=== PATIENT | male | born 1960 | race African-American/Black ===

== ENCOUNTER → 2016-08-10 | Day surgery (SDC) | payer OTHER ==
[~2016-08-10] MED LIST: ALPH300C PO; AMLO5TAB2 PO; HYDROmorphone 2 MG/ML VIAL IV PRN; INSU100V5 IJ; IV RINGERS,LACTATED 1000ML 1,000 ML IV SCH; LIDOCAINE 1% 1 ML SYRINGE. ID PRN; LIDOCAINE 2% PF Vial for OR 5 ML VIAL. ONE; LISI1TAB3 PO; MIDAZOLAM HCL/PF 2 MG/2 ML VIAL. IV PRN; MIRT45TA PO; MORPHINE SULFATE 2 MG/ML DISP.SYRIN. IV PRN; NAPR500T PO; NPH,100V SQ; ONDANSETRON PF 4 MG/2 ML VIAL. IV PRN; OXCA150T3 PO; PANT40TA3 PO; PROCHLORPERAZINE 10 MG/2 ML VIAL. IV PRN; PROPOFOL 40 ML IV ONE; fentaNYL PF VIAL 100 MCG/2 ML VIAL IV PRN
--- NOTE | 2016-08-10 09:49 | PDOC2 ---
GI CONSULT Reason For Consult: EGD HPI: HPI: 55 y/o male w/ dysphagia, mostly w/ solid foods. Additional h/o GERD on PPI. PMH: PMH: GERD, Flaherty's, dysphagia, HTN, DM, hernia repair FH: Family History: No pertinent hx Social History: Smoke: No ALCOHOL: none Drugs: None ROS: GEN: Denies fevers, chills, sweats HEENT: Denies blurred vision, sore throat CV: Denies chest pain RESP: Denies shortness of air, cough GI: Per HPI : Denies hematuria, dysuria ENDO: Denies weight changes NEURO: Denies confusion, dizziness MSK: Denies weakness, joint pain/swelling SKIN: Denies jaundice, pruritus Vitals: Vitals: Vital Signs Date Time Temp Pulse Resp B/P (MAP) Pulse Ox O2 Delivery O2 Flow Rate FiO2 08/10/16 08:47 98.1 78 20 95 98.1 Labs: Labs: Laboratory Tests Test 08/10/16 08:53 Glucose (Fingerstick) 179 mg/dL (70-99) Allergies: Coded Allergies: No Known Drug Allergies (Unverified , 08/10/16) Medications: Current Medications Medications (Trade) Dose Ordered Sig/Neo Route PRN Reason Start Time Stop Time Status Last Admin Dose Admin Ringer's Solution 1,000 ml @ 30 mls/hr Q24H IV 08/10/16 07:00 08/10/16 18:59 08/10/16 08:51 PE: GEN: NAD HEENT: Atraumatic, PERRL LUNGS: CTAB HEART: RRR ABD: NABS, S/ND/NT EXTREMITY: No edema SKIN: No rashes, no jaundice NEURO/PSYCH: A & O 3 A/P: A/P: Dysphagia GERD -- Proceed w/ EGD w/ possible esophageal dilation and/or biopsies. ZAHRAA LECHUGA Aug 10, 2016 09:49
[2016-08-10 11:12] VITALS: BP 140/88
--- NOTE | 2016-08-13 14:30 | PATHOLOGY ---
PATHOLOGY REPORT * * * * * * * * FINAL DIAGNOSIS: A. 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 B. 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 (JPM:ngoc; 08/13/2016) COMMENT: A. 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 There is no dysplasia or evidence of malignancy. B. 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 There is no squamous esophageal mucosa. There is no evidence of dysplasia or malignancy. (JPM:ngoc; 08/13/2016) REPORT ELECTRONICALLY SIGNED BY: Wade Frey M.D. DATE/TIME: 08/13/2016 14:30 * * * * * * * * GROSS PATHOLOGY: A. Received in formalin labeled "Junior Martínez, mid esophageal biopsy," are multiple segments of finney soft tissue measuring from 0.1 up to 0.3 cm in maximum dimension. The specimen is submitted entirely in cassette A1. B. Received in formalin labeled "distal esophageal biopsy," are multiple segments of finney soft tissue measuring from 0.1 up to 0.3 cm in maximum dimension. The specimen is submitted entirely in cassette B1. (JPM; 08/10/16) INITIAL CPT CODE(S): A; 40174 B; 64687 Professional services performed by [facility] at [facility] [address] [place] [address] Technical services performed by [facility] at [address] [place] [address], [address], [place] [address]. [facility]: SPECIMEN(S) RECEIVED: A.Mid esophagus biopsy B.Distal esophagus biopsy CLINICAL HISTORY: Dysphagia PATIENT: JUNIOR MARTÍNEZ R /AGE: 7 1960 (Age: 55) PATIENT #: [id number] ALT CASE #: SPECIMEN COLLECTION DATE: 08/10/2016 SPECIMEN RECEIVED DATE: 08/10/2016 [facility] - [address] [place] [address] - PHONE: [phone] * * * END OF REPORT * * *
== END | disposition home or self-care (01) ==
LOC: ENDOS 08:27 → EEVIPCON 10:00
PROVIDERS: ATTEND Internal Medicine Gastroenterology
DX: K22.70 Barrett's esophagus without dysplasia (principal); I10 Essential (primary) hypertension; E11.9 Type 2 diabetes mellitus without complications; Z86.39 Personal history of other endocrine, nutritional and metabolic disease
CPT/HCPCS: 43239; 43249; 82962; 88305; J2704

== ENCOUNTER → 2016-10-11 | Outpatient (CLI) | payer OTHER ==
[2016-08-10 11:12] VITALS: BP 140/88
[~2016-10-11] MED LIST changes: -HYDROmorphone 2 MG/ML VIAL IV PRN; -IV RINGERS,LACTATED 1000ML 1,000 ML IV SCH; -LIDOCAINE 1% 1 ML SYRINGE. ID PRN; -LIDOCAINE 2% PF Vial for OR 5 ML VIAL. ONE; -MIDAZOLAM HCL/PF 2 MG/2 ML VIAL. IV PRN; -MORPHINE SULFATE 2 MG/ML DISP.SYRIN. IV PRN; -ONDANSETRON PF 4 MG/2 ML VIAL. IV PRN; -PROCHLORPERAZINE 10 MG/2 ML VIAL. IV PRN; -PROPOFOL 40 ML IV ONE; -fentaNYL PF VIAL 100 MCG/2 ML VIAL IV PRN
--- NOTE | 2016-10-11 10:25 | RAD ---
Exam performed: 2 views right knee. History: Chronic right knee pain for 3 to 4 years, no injury. Disability determination. Date of service: 10/11/16. Comparison: None available AP and lateral view right knee findings: Normal alignment of the medial and lateral tibiofemoral joint is preserved. There is mild narrowing of the patellofemoral joint with minimal osteophytic spurring emanating from the articular surface of patella. There is no acute fracture or dislocation. No soft tissue swelling or joint effusion seen. Impression: Early degenerative changes involving the patellofemoral joint. No acute abnormality seen.
== END | disposition home or self-care (01) ==
LOC: RAD 09:16
PROVIDERS: ATTEND Surgery
DX: M17.11 Unilateral primary osteoarthritis, right knee (principal)
CPT/HCPCS: 73560

== ENCOUNTER 2017-07-24 10:11 | Emergency (ER) | payer OTHER | END 2017-07-24 11:40 | disposition home or self-care (01) | LOC: ER 10:11 | DX: L03.011 Cellulitis of right finger (principal) | CPT/HCPCS: 99283 ==

== ENCOUNTER 2017-10-25 17:51 | Emergency (ER) | payer SELFPAY ==
[~2017-10-25] VITALS: Ht 182.9 cm; Wt 86.2 kg
[~2017-10-25 17:51] MED LIST changes: -AMLO5TAB2 PO; +AMLO5TAB7 PO; +HYDR-971 PO; +NAPR-683 PO; -NAPR500T PO; +SULF1TAB24 PO
[2017-10-25 19:51] VITALS: BP 143/81
[2017-10-25] MEDS ORDERED: LIDOCAINE/EPI/TETRACAINE TOPICAL GEL 3 ML. TP ONE ×2 (20:00)
[2017-10-25] MEDS ORDERED: CEPH-264 PO (20:16)
--- NOTE | 2017-10-25 20:17 | PHYS DOC ---
Past Medical History Past Medical History: Diabetes-Type II, Hypertension Past Surgical History: No Surgical History Additional Past Surgical Histo: RIGHT FINGER, HERNIA Alcohol Use: Occasionally Drug Use: None Adult General Chief Complaint Chief Complaint: FINGER INJURY HPI HPI Patient is a 57 year old male who presents with right ring finger pain, swelling, redness 2 weeks. Also complains of throat pain 3 days. Patient denies fever. Review of Systems Review of Systems Constitutional: Denies fever or chills [] Eyes: Denies change in visual acuity, redness, or eye pain [] HENT: Denies nasal congestion or sore throat [] Respiratory: Denies cough or shortness of breath [] Cardiovascular: No additional information not addressed in HPI [] GI: Denies abdominal pain, nausea, vomiting, bloody stools or diarrhea [] : Denies dysuria or hematuria [] Musculoskeletal: Denies back pain or joint pain [] Integument: Denies rash or Right tip of ring finger abscess. Neurologic: Denies headache, focal weakness or sensory changes [] Endocrine: Denies polyuria or polydipsia [] All other systems were reviewed and found to be within normal limits, except as documented in this note. Current Medications Current Medications Current Medications Medications (Trade) Dose Ordered Sig/Neo Start Time Stop Time Status Last Admin Dose Admin Acetaminophen/ Hydrocodone Bitart (Lortab 5/325) 1 tab 1X ONCE 10/25/17 21:30 10/25/17 21:30 DC 10/25/17 21:13 1 TAB Lidocaine/ Epinephrine (Let Topical) 3 ml 1X ONCE 10/25/17 20:00 10/25/17 20:01 DC 10/25/17 20:00 3 ML Allergies Allergies Allergies Coded Allergies Type Severity Reaction Last Updated Verified No Known Drug Allergies 08/10/16 No Physical Exam Physical Exam Constitutional: Well developed, well nourished, no acute distress, non-toxic appearance. [] HENT: Normocephalic, atraumatic, bilateral external ears normal, oropharynx moist, no oral exudates, nose normal. [] Eyes: PERRLA, EOMI, conjunctiva normal, no discharge. [] Neck: Normal range of motion, no tenderness, supple, no stridor. [] Cardiovascular:Heart rate regular rhythm, no murmur [] Lungs & Thorax: Bilateral breath sounds clear to auscultation [] Abdomen: Bowel sounds normal, soft, no tenderness, no masses, no pulsatile masses. [] Skin: Right tip ring finger with redness, swelling, and a skin next to the nail look to be filled with purulent fluid. Warm, dry, no erythema, no rash. [] Back: No tenderness, no CVA tenderness. [] Extremities: No tenderness, no cyanosis, no clubbing, ROM intact, no edema. [] Neurologic: Alert and oriented X 3, normal motor function, normal sensory function, no focal deficits noted. [] Psychologic: Affect normal, judgement normal, mood normal. [] Current Patient Data Vital Signs Vital Signs Date Time Temp Pulse Resp B/P (MAP) Pulse Ox O2 Delivery O2 Flow Rate FiO2 10/25/17 21:13 18 100 Room Air 10/25/17 19:51 98.7 84 143/81 (101) 98.7 Lab Values Laboratory Tests Test 10/25/17 20:21 Group A Streptococcus Rapid Negative (NEGATIVE) EKG EKG [] Radiology/Procedures Radiology/Procedures Right hand Impressions: No acute findings Course & Med Decision Making Course & Med Decision Making Patient is a 57 year old male who presents with right ring finger pain, swelling, redness 2 weeks. Also complains of throat pain 3 days. Patient denies fever. Upon examination of patient's right ring finger swollen and red but not draining. There is an area outer side of the nail that there is purulent filled. We will apply let to numb it and I will puncture the area to drain pus. Patient will be put on Keflex antibiotic for Paronychia. Patients throat is red but without exudates. Patient denies any head congestion or chest congestion cough. Patient has no sinus tenderness. Patient has no palpable lymph nodes. Patient denies any nausea, fever, diarrhea, vomiting. Patient's lungs are clear to auscultation and heart rate is regular. Alert and oriented. Patients strep is negative. Right hand x ray shows no signs of osteomyelitis and was read by Dr Brown. Large amount of purulent fluid is drained from wound. Patient tolerated well. Patietn to follow up in 48 hours. Abscess Incision and Drainage with irrigation by me: Location: Right 4th finger Anesthesia: LETS Technique: Irrigated. Disrupted loculations w/ instrumentation Packing: None Complications: Neurovascularly intact post procedure 48 hour wound check. Scar minimization instructions given. ED Ultrasound: Abscess localized by me using concurrent ultrasound guidance and assessment of the anatomy. Real time image archived in the medical record confirms anatomy. [ Dragon Disclaimer Dragon Disclaimer This electronic medical record was generated, in whole or in part, using a voice recognition dictation system. Departure Departure Impression: Primary Impression: Paronychia of finger Disposition: HOME, SELF-CARE Condition: STABLE Referrals: UNKNOWN PCP NAME (PCP) Patient Instructions: Paronychia, [id number] Additional Instructions: Follow up with wound check in 48 hours. Soak in warm soapy water. Keep clean and dry. Take medications as prescribed. Scripts Ibuprofen (IBUPROFEN) 600 Mg Tablet 600 MG PO PRN Q6HRS PRN for INFLAMMATION, #10 TAB Prov: LIZETTE CORLEY APR10/25/17 Hydrocodone/Apap 5-325 (NORCO 5-325 TABLET) 1 Each Tablet 1 TAB PO PRN Q6HRS PRN for PAIN, #4 TAB 0 Refills Prov: LIZETTE CORLEY APR10/25/17 Cephalexin (KEFLEX) 500 Mg Capsule 500 MG PO QID for 7 Days, #28 CAP Prov: LIZETTE CORLEY INSTRUCTIONAL ASSISTANT 10/25/17 Attending Signature Attending Signature I have reviewed the PA/WAFER FABRICATION TECHNICIAN's note and plan of care. I was available for consultation as needed during the patient's visit in the emergency department. I agree with the clinical impression, plan, and disposition. Problem Qualifiers Primary Impression: Paronychia of finger Laterality: right Qualified Codes: L03.011 - Cellulitis of right finger LIZETTE CORLEY APRN Oct 25, 2017 20:17 LARRY BROWN DO Oct 27, 2017 04:20
[2017-10-25] MEDS ORDERED: IBUP-1007 PO (20:57)
[2017-10-25] MEDS ORDERED: HYDR-971 PO (20:57)
[2017-10-25] MEDS ORDERED: HYDROcodone/APAP 5/325MG 1 TAB TABLET PO ONE (21:30)
--- NOTE | 2017-10-26 08:33 | RAD ---
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 There is a partially radiopaque bandage related to the distal aspect of the ring finger. No underlying fracture or destructive bony lesion is seen. There is mild spurring at scattered interphalangeal joints. IMPRESSION: No acute bony abnormality is detected. Electronically signed by: Bola Tyson MD (10/26/2017 8:29 AM) [facility]
== END 2017-10-25 21:19 | disposition home or self-care (01) ==
LOC: ER 17:51
DX: L03.011 Cellulitis of right finger (principal); E11.9 Type 2 diabetes mellitus without complications; I10 Essential (primary) hypertension; R07.0 Pain in throat
CPT/HCPCS: 10060; 73130; 87070; 87880; 99285-25

== ENCOUNTER 2017-10-28 00:48 | Emergency (ER) | payer SELFPAY ==
[~2017-10-28 00:48] MED LIST changes: +CEPH-264 PO; +IBUP-1007 PO
[2017-10-28] MEDS ORDERED: CEPH-264 PO (04:14)
[2017-10-28] MEDS ORDERED: SULF1TAB24 PO (04:14)
[2017-10-28] MEDS ORDERED: FAMO-63 PO (04:14)
== END 2017-10-28 01:58 | disposition left against medical advice (07) ==
LOC: ER 00:48
DX: M79.644 Pain in right finger(s) (principal); Z53.21 Procedure and treatment not carried out due to patient leaving prior to being seen by health care provider

== ENCOUNTER 2017-10-28 02:43 | Emergency (ER) | payer SELFPAY ==
[~2017-10-28] VITALS: Ht 182.9 cm; Wt 88.5 kg
[2017-10-28 02:55] VITALS: BP 122/76
[2017-10-28] MEDS ORDERED: CEPHALEXIN 250 MG CAPSULE. PO ONE (03:30)
[2017-10-28] MEDS ORDERED: SMZ/TMP 800/160MG TABLET. PO ONE (03:30)
[2017-10-28] MEDS ORDERED: NEOMY/BACITR/POLYMYXIN OINT PACKET. TP ONE (03:30)
[2017-10-28] MEDS ORDERED: LIDOCAINE 2%/EPI 1:100,000 20 ML VIAL. IJ ONE (03:30)
[2017-10-28] MEDS ORDERED: SULF1TAB24 PO (04:14)
[2017-10-28] MEDS ORDERED: FAMO-63 PO (04:14)
[2017-10-28] MEDS ORDERED: CEPH-264 PO (04:14)
--- NOTE | 2017-10-28 04:14 | PHYS DOC ---
Past Medical History Past Medical History: Diabetes-Type II, Hypertension Past Surgical History: No Surgical History Additional Past Surgical Histo: RIGHT FINGER, HERNIA Alcohol Use: Occasionally Drug Use: None Adult General Chief Complaint Chief Complaint: FINGER INJURY HPI HPI Patient is a 57 year old [f__sex] who presents with [] Review of Systems Review of Systems Constitutional: Denies fever or chills [] Eyes: Denies change in visual acuity, redness, or eye pain [] HENT: Denies nasal congestion or sore throat [] Respiratory: Denies cough or shortness of breath [] Cardiovascular: No additional information not addressed in HPI [] GI: Denies abdominal pain, nausea, vomiting, bloody stools or diarrhea [] : Denies dysuria or hematuria [] Musculoskeletal: Denies back pain or joint pain [] Integument: Denies rash or skin lesions [] Neurologic: Denies headache, focal weakness or sensory changes [] Endocrine: Denies polyuria or polydipsia [] All other systems were reviewed and found to be within normal limits, except as documented in this note. Current Medications Current Medications Current Medications Medications (Trade) Dose Ordered Sig/Neo Start Time Stop Time Status Last Admin Dose Admin Cephalexin HCl (Keflex) 500 mg 1X ONCE 10/28/17 03:30 10/28/17 03:31 DC 10/28/17 03:39 500 MG Lidocaine/ Epinephrine (LIDOCAINE 2%-EPI 1:100,000 multi-dose) 20 ml 1X ONCE 10/28/17 03:30 10/28/17 03:31 DC 10/28/17 03:39 20 ML Neomycin/ Polymyxin/ Bacitracin (Triple Antibiotic Ointment) 1 pkt 1X ONCE 10/28/17 03:30 10/28/17 03:31 DC 10/28/17 03:40 1 PKT Trimethoprim/ Sulfamethoxazole (Bactrim Ds) 2 tab 1X ONCE 10/28/17 03:30 10/28/17 03:31 DC 10/28/17 03:39 2 TAB Allergies Allergies Allergies Coded Allergies Type Severity Reaction Last Updated Verified No Known Drug Allergies 08/10/16 No Physical Exam Physical Exam Constitutional: Well developed, well nourished, no acute distress, non-toxic appearance. [] HENT: Normocephalic, atraumatic, bilateral external ears normal, oropharynx moist, no oral exudates, nose normal. [] Eyes: PERRLA, EOMI, conjunctiva normal, no discharge. [] Neck: Normal range of motion, no tenderness, supple, no stridor. [] Cardiovascular:Heart rate regular rhythm, no murmur [] Lungs & Thorax: Bilateral breath sounds clear to auscultation [] Abdomen: Bowel sounds normal, soft, no tenderness, no masses, no pulsatile masses. [] Skin: Warm, dry, no erythema, no rash. [] Back: No tenderness, no CVA tenderness. [] Extremities: No tenderness, no cyanosis, no clubbing, ROM intact, no edema. [] Neurologic: Alert and oriented X 3, normal motor function, normal sensory function, no focal deficits noted. [] Psychologic: Affect normal, judgement normal, mood normal. [] Current Patient Data Vital Signs Vital Signs Date Time Temp Pulse Resp B/P (MAP) Pulse Ox O2 Delivery O2 Flow Rate FiO2 10/28/17 02:55 99.1 98 20 122/76 (91) 98 Room Air 99.1 EKG EKG [] Radiology/Procedures Radiology/Procedures [] Course & Med Decision Making Course & Med Decision Making Pertinent Labs and Imaging studies reviewed. (See chart for details) [] Dragon Disclaimer Dragon Disclaimer This electronic medical record was generated, in whole or in part, using a voice recognition dictation system. Departure Departure Impression: Primary Impression: Paronychia of finger Additional Impression: Dysphagia Disposition: 01 HOME, SELF-CARE Condition: STABLE Referrals: UNKNOWN PCP NAME (PCP) Patient Instructions: Dysphagia, Dysphagia Diet Level 1, Pureed, Paronychia, [id number] Scripts Famotidine (PEPCID) 20 Mg Tablet 20 MG PO BID, #30 TAB Prov: LARRY BROWN DO 10/28/17 Cephalexin (KEFLEX) 500 Mg Capsule 500 MG PO QID for 10 Days, #40 CAP Prov: LARRY BROWN DO 10/28/17 Sulfamethoxazole/Trimethoprim (BACTRIM DS TABLET) 1 Each Tablet 2 EACH PO BID for 10 Days, #40 TAB Prov: LARRY BROWN DO 10/28/17 Problem Qualifiers Primary Impression: Paronychia of finger Laterality: right Qualified Codes: L03.011 - Cellulitis of right finger LARYR BROWN DO Oct 28, 2017 04:14
[2017-10-28] MEDS ORDERED: LIDO:MAALOX 1:1 20 ML SINGLE DOSE. PO ONE (04:30)
== END 2017-10-28 04:25 | disposition home or self-care (01) ==
LOC: ER 02:43
DX: L03.011 Cellulitis of right finger (principal); R13.10 Dysphagia, unspecified; E11.9 Type 2 diabetes mellitus without complications; I10 Essential (primary) hypertension
CPT/HCPCS: 96372; 99284; J3490

== ENCOUNTER 2017-11-11 20:23 | Emergency (ER) | payer SELFPAY ==
[~2017-11-11] VITALS: Ht 182.9 cm; Wt 86.2 kg
[~2017-11-11 20:23] MED LIST changes: +FAMO-63 PO
[2017-11-11 21:51] VITALS: BP 130/72
[2017-11-11] MEDS ORDERED: SMZ/TMP 800/160MG TABLET. PO ONE (22:00)
[2017-11-11] MEDS ORDERED: MUPI22OI2 TP (22:48)
[2017-11-11] MEDS ORDERED: SULF1TAB24 PO (22:48)
--- NOTE | 2017-11-11 22:48 | PHYS DOC ---
Past Medical History Past Medical History: Diabetes-Type II Past Surgical History: No Surgical History Additional Past Surgical Histo: RIGHT FINGER, HERNIA Alcohol Use: Occasionally Drug Use: None Adult General Chief Complaint Chief Complaint: BURN/SMOKE INHALATION HPI HPI Patient is a 57 year old female presents with burn to right groin. Patient states he put hot rib on his groin 3 weeks ago for that. He is not clear why patient when undertakes such a better perform such task. Nevertheless, this is historian patient tells. There is injury consistent with superficial burn shallow ulceration of skin above and below the inguinal fold. There is mild swelling and weeping of the skin in this region. This does not extend into genitals or in. Patient has not taking any medications for this but was at prior to ED arrival and decided to leave AMA. Patient has history of type 2 diabetes with questionable. He is not been evaluated for his symptoms. He does not have any other [] Review of Systems Review of Systems ROS as per HPI [] All other systems were reviewed and found to be within normal limits, except as documented in this note. Current Medications Current Medications Current Medications Medications (Trade) Dose Ordered Sig/Neo Start Time Stop Time Status Last Admin Dose Admin Trimethoprim/ Sulfamethoxazole (Bactrim Ds) 1 tab 1X ONCE 11/11/17 22:00 11/11/17 22:01 DC 11/11/17 22:04 1 TAB Allergies Allergies Allergies Coded Allergies Type Severity Reaction Last Updated Verified No Known Drug Allergies 08/10/16 No Physical Exam Physical Exam Constitutional: Well developed, well nourished, no acute distress, non-toxic appearance. [] HENT: Normocephalic, atraumatic, bilateral external ears normal, oropharynx moist, no oral exudates, nose normal. [] Eyes: PERRLA, EOMI, conjunctiva normal, no discharge. [] Neck: Normal range of motion, no tenderness, supple, no stridor. [] Cardiovascular:Heart rate regular rhythm, no murmur [] Lungs & Thorax: Bilateral breath sounds clear to auscultation [] Abdomen: Bowel sounds normal, soft, superficial region/ulcers over right inguinal fold. Minimal swelling, weeping. Erythema noted around margins of lesions. No involvement of gentle's or perenium [] Skin: Warm, dry, no erythema, no rash. [] rness. [] Extremities: No tenderness, no cyanosis, no clubbing, ROM intact, no edema. [] Neurologic: Alert and oriented X 3, normal motor function, normal sensory function, no focal deficits noted. [] Psychologic: Affect normal, judgement normal, mood normal. [] Current Patient Data Vital Signs Vital Signs Date Time Temp Pulse Resp B/P (MAP) Pulse Ox O2 Delivery O2 Flow Rate FiO2 11/11/17 21:51 98.1 93 18 130/72 (91) 98 Room Air 98.1 Lab Values Laboratory Tests Test 11/11/17 21:49 Glucose (Fingerstick) 231 mg/dL (70-99) H EKG EKG [] Radiology/Procedures Radiology/Procedures [] Course & Med Decision Making Course & Med Decision Making Pertinent Labs and Imaging studies reviewed. (See chart for details) [Infected superficial burn. Will prescribe Bactrim and Bactroban ointment. Recommend following up with PCP for reevaluation in 2-3 days. Return precautions reviewed. Dragon Disclaimer Dragon Disclaimer This electronic medical record was generated, in whole or in part, using a voice recognition dictation system. Departure Departure Impression: Primary Impression: Cellulitis Additional Impression: Second degree burn of groin Disposition: HOME, SELF-CARE Condition: GOOD Referrals: NO PCP (PCP) Patient Instructions: Cellulitis, [id number] Additional Instructions: Please take oral antibiotics as directed, keep right groin clean, dry and apply topical antibiotics as directed. Follow-up with your PCP at in 1-2 days for reevaluation. Scripts Mupirocin (MUPIROCIN OINTMENT) 22 Gm Oint...g. 1 PATTY TP TID for WOUND CARE, #1 TUBE Prov: NEMESIO GAINES DO 11/11/17 Sulfamethoxazole/Trimethoprim (BACTRIM DS TABLET) 1 Each Tablet 1 TAB PO BID, #20 TAB Prov: NEMESIO GAINES DO 11/11/17 Problem Qualifiers NEMESIO GAINES DO Nov 11, 2017 22:48
== END 2017-11-11 23:04 | disposition home or self-care (01) ==
LOC: ER 20:23
DX: T21.22XA Burn of second degree of abdominal wall, initial encounter (principal); L98.499 Non-pressure chronic ulcer of skin of other sites with unspecified severity; L03.311 Cellulitis of abdominal wall; E11.9 Type 2 diabetes mellitus without complications; X08.8XXA Exposure to other specified smoke, fire and flames, initial encounter; Y93.89 Activity, other specified; Y92.89 Other specified places as the place of occurrence of the external cause; Y99.8 Other external cause status
CPT/HCPCS: 82962; 99283

== ENCOUNTER 2018-08-15 21:30 | Emergency (ER) | payer SELFPAY ==
[~2018-08-15] VITALS: Ht 182.9 cm; Wt 86.2 kg
[~2018-08-15 21:30] MED LIST changes: +AMLO5TAB10 PO; -AMLO5TAB7 PO; +HYDR-3164 PO; -HYDR-971 PO; +MUPI22OI2 TP; -PANT40TA3 PO; +PANT40TA77 PO
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
[2018-08-15] MEDS ORDERED: NEOMY/BACITR/POLYMYXIN OINT PACKET. TP ONE (22:30)
[2018-08-15 22:33] LABS: BILIRUBIN,URINE NEGATIVE (NEG); CLARITY,URINE CLEAR; COLOR,URINE YELLOW; NITRITE,URINE NEGATIVE (NEG); PROTEIN,URINE NEGATIVE (NEG-TRACE); UROBILINOGEN,URINE 0.2 mg/dL (0.2 mg/dL)
[2018-08-15 22:36] LABS: AMPHETAMINE/METHAMPHETAMINE NEG (NEG); BARBITURATES NEG (NEG); BENZODIAZEPINES POS (NEG); CANNABINOIDS NEG (NEG); COCAINE NEG (NEG); METHADONE NEG (NEG); OPIATES NEG (NEG); PHENCYCLIDINE NEG (NEG)
[2018-08-15 22:41] LABS: RBC,URINE 0 /HPF (0-2)
[2018-08-15 22:42] LABS: BACTERIA,URINE 0 /HPF (0-FEW); SQUAMOUS EPITHELIAL CELL,UR OCC /LPF; WBC,URINE 0 /HPF (0-4)
[2018-08-15 22:54] LABS: BASO # 0.1 x10^3/uL (0.0-0.2); BASO % 1 % (0-3); EOS % 1 % (0-3); HEMATOCRIT 44.1 % (39.0-53.0); HEMOGLOBIN 14.7 g/dL (13.0-17.5); LYMPH # 1.6 x10^3/uL (1.0-4.8); LYMPH % 24 % (24-48); MEAN CORPUSCULAR HEMOGLOBIN 31 pg (25-35); MEAN CORPUSCULAR HGB CONC 33 g/dL (31-37); MEAN CORPUSCULAR VOLUME 93 fL (79-100); MONO # 0.5 x10^3/uL (0.0-1.1); MONO % 8 % (0-9); NEUT # 4.5 x10^3uL (1.8-7.7); NEUT % 67 % (31-73); PLATELET COUNT 288 x10^3/uL (140-400); RED BLOOD COUNT 4.76 x10^6/uL (4.30-5.70); WHITE BLOOD COUNT 6.7 x10^3/uL (4.0-11.0)
[2018-08-15] MEDS ORDERED: MULTIVIT INFUSN,ADULT 4,VIT K 10 ML, THIAMINE INJ 100 MG, FOLIC ACID INJ 1 MG in IV NOR... IV SCH (23:00)
[2018-08-15 23:02] LABS: PROTHROMBIN TIME PATIENT 13.4 SEC (11.7-14.0)
[2018-08-15 23:05] LABS: CALCIUM 9.3 mg/dL (8.5-10.1); GFR 92.2; POTASSIUM 3.8 mmol/L (3.5-5.1)
--- NOTE | 2018-08-15 23:10 | RAD ---
CT scan of the head without contrast 08/15/2018 Clinical History: Fall with head injury. Technique: Unenhanced, contiguous, 5 mm axial sections were obtained through the head. One or more of the following individualized dose reduction techniques were utilized for this study: 1. Automated exposure control. 2. Adjustment of the mA and/or kV according to patient size. 3. Use of iterative reconstruction technique. Findings: Comparison study is dated 03/19/2009. There is generalized parenchymal atrophy. Areas of decreased attenuation are seen within the periventricular and subcortical white matter of both cerebral hemispheres consistent with areas of small vessel ischemic disease. No acute parenchymal abnormality is seen. No extra-axial fluid collection is noted. No skull fracture is seen. Impression: No acute intracranial abnormality is seen. CT scan of the cervical spine without contrast 08/15/2018 Clinical history: Neck pain post fall. Technique: Unenhanced, contiguous, 0.625 mm axial sections were obtained through the cervical spine. Axial, coronal and sagittal reconstructed images were obtained. One or more of the following individualized dose reduction techniques were utilized for this study: 1. Automated exposure control. 2. Adjustment of the mA and/or kV according to patient size. 3. Use of iterative reconstruction technique. Findings: Sagittal and coronal reconstructed images demonstrate mild straightening of the normal cervical lordosis. Degenerative changes consisting of vertebral endplate sclerosis and minimal to mild anterior and posterior vertebral body osteophyte formation are seen throughout the cervical disc spaces. No fracture or subluxation of the cervical vertebrae is seen. Degenerative changes are seen involving the uncovertebral and facet joints throughout the cervical disc spaces. Impression: No fracture or subluxation of the cervical vertebra is identified. Electronically signed by: Giovanny Ayala MD (08/15/2018 11:07 PM) [facility]
[2018-08-15 23:12] LABS: ALBUMIN 3.7 g/dL (3.4-5.0); ALBUMIN/GLOBULIN RATIO 0.8 (1.0-1.7); MAGNESIUM 2.2 mg/dL (1.8-2.4); TOTAL BILIRUBIN 0.4 mg/dL (0.2-1.0); TOTAL PROTEIN 8.3 g/dL (6.4-8.2)
[2018-08-16 02:40] VITALS: BP 132/89
--- NOTE | 2018-08-16 09:56 | EKG ---
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
== END 2018-08-16 05:10 | disposition home or self-care (01) ==
LOC: ER 21:30
DX: S00.03XA Contusion of scalp, initial encounter (principal); S80.211A Abrasion, right knee, initial encounter; S50.311A Abrasion of right elbow, initial encounter; S00.81XA Abrasion of other part of head, initial encounter; R11.2 Nausea with vomiting, unspecified; R42 Dizziness and giddiness; F10.129 Alcohol abuse with intoxication, unspecified; Y90.8 Blood alcohol level of 240 mg/100 ml or more; E11.9 Type 2 diabetes mellitus without complications; Y04.0XXA Assault by unarmed brawl or fight, initial encounter; Y93.89 Activity, other specified; Y92.89 Other specified places as the place of occurrence of the external cause; Y99.8 Other external cause status
CPT/HCPCS: 36415; 70450; 72125; 80053; 80307; 81001; 82553; 83690; 83735; 84484; 85025; 85610; 85730; 93005; 96365; 99285; G0480; J7030